=== PATIENT | female | born 1970 | race Caucasian/White ===

== ENCOUNTER 2016-04-22 09:18 | Emergency (ER) | payer BC, MEDICAID ==
[2016-04-22] MEDS ORDERED: OPTIRAY 350 100 ML VIAL HMH IV ONE (09:19)
[2016-04-22] MEDS ORDERED: ONDANSETRON 4 MG VIAL ONE (10:14)
[2016-04-22] MEDS ORDERED: DILAUDID 1 MG/ML AMP ONE (10:14)
[2016-04-22] MEDS ORDERED: SODIUM CHLORIDE 0.9% 1,000 ML ONE (10:14)
== END 2016-04-22 14:02 | disposition home or self-care (01) ==
LOC: ER 09:18
DX: R19.7 Diarrhea, unspecified (principal); R31.0 Gross hematuria; J20.9 Acute bronchitis, unspecified; F17.210 Nicotine dependence, cigarettes, uncomplicated; N83.291 Other ovarian cyst, right side
CPT/HCPCS: 36415; 71020; 74177; 80053; 81001; 83690; 84703; 85025; 86677; 96361; 96374; 96375

== ENCOUNTER 2016-04-23 20:46 | Emergency (ER) | payer BC, MEDICAID ==
[2016-04-23] MEDS ORDERED: TDaP 0.5 ML VIAL IM.VACC ONE (21:49)
[2016-04-23] MEDS ORDERED: LIDOCAINE 1% MDV 0 ML ONE (21:50)
[2016-04-23] MEDS ORDERED: LIDOCAINE 2% 20 ML ONE (21:52)
[2016-04-23] MEDS ORDERED: SODIUM CHLORIDE 0.9% 1,000 ML ONE (22:31)
[2016-04-23] MEDS ORDERED: ONDANSETRON 4 MG VIAL ONE (22:36)
[2016-04-23] MEDS ORDERED: MORPHINE 4 MG/ML SYR ONE (22:36)
== END 2016-04-24 00:01 | disposition other institution (70) ==
LOC: ER 20:46 → EEVIPCON 20:46 → ER 04-24 00:01
DX: S06.6X1A Traumatic subarachnoid hemorrhage with loss of consciousness of 30 minutes or less, initial encounter (principal); V47.0XXA Car driver injured in collision with fixed or stationary object in nontraffic accident, initial encounter; S01.312A Laceration without foreign body of left ear, initial encounter; S50.312A Abrasion of left elbow, initial encounter; S50.311A Abrasion of right elbow, initial encounter; S00.93XA Contusion of unspecified part of head, initial encounter; S20.219A Contusion of unspecified front wall of thorax, initial encounter; S80.02XA Contusion of left knee, initial encounter; S80.01XA Contusion of right knee, initial encounter; Z23 Encounter for immunization; F17.210 Nicotine dependence, cigarettes, uncomplicated
CPT/HCPCS: 36415; 70450; 71020; 72072; 72125; 80053; 81001; 81025; 85025; 85610; 85730; 86850; 86900; 86901; 90471; 96374; 96375